=== PATIENT | male | born 1970 | race Caucasian/White ===

== ENCOUNTER 2017-01-13 07:44 | Inpatient (IN) | payer MEDICAID ==
[~2017-01-13] VITALS: Ht 203.2 cm; Wt 78.9 kg
[2017-01-13] MEDS ORDERED: SODIUM CHLORIDE 0.9% 1,000 ML IV ONE (08:12)
[2017-01-13] MEDS ORDERED: ONDANSETRON HCL 4MG/2ML VIAL IV STA (08:12)
[2017-01-13] MEDS ORDERED: FAMOTIDINE 20MG/2ML VIAL IV STA (08:12)
[2017-01-13] MEDS ORDERED: FOLIC ACID 1 MG, THIAMINE HCL 100 MG, MVI, ADULT NO.1 10 ML in DEXTROSE 5% WATER 1,000 ML IV ONE ×4 (08:15)
[2017-01-13] MEDS ORDERED: LORAZEPAM 2MG/ML CPJ IV ONE (08:15)
[2017-01-13 08:34] LABS: HEMATOCRIT. 40.3 % (42.0-52.0); HEMOGLOBIN. 13.4 g/dL (14.0-18.0); MEAN CORPUSCULAR HEMOGLOBIN 31.8 pg (28.0-32.0); MEAN CORPUSCULAR HGB CONC 33.4 g/dL (31.0-37.0); MEAN CORPUSCULAR VOLUME 95.4 fL (80.0-94.0); MEAN PLATELET VOLUME 11.9 fl (7.4-10.4); RED BLOOD CELL COUNT 4.23 mill/uL (4.7-6.1); RED CELL DISTRIBUTION WIDTH 17.9 % (11.6-14.6); WHITE BLOOD COUNT 3.2 x1000/uL (4.5-11.0)
[2017-01-13 08:43] LABS: CHLORIDE 100 mEq/L (98-107); INDEX HEMOLYSI 4 (1-3); INDEX ICTERIC 1 (1-4); INDEX LIPEMIC 1 (1-3)
[2017-01-13 08:44] LABS: DIFFERENTIAL COMMENT 1; PARTIAL THROMBOPLASTIN TIME 23.3 sec (24.0-34.0); PROTHROMBIN TIME 10.7 sec
[2017-01-13 08:46] LABS: PLATELET 24 x1000/uL (130-400)
[2017-01-13 08:47] LABS: ALANINE AMINOTRANSFERASE 119 IU/L (13-61); ALBUMIN 3.5 g/dL (3.4-5.0); ANION GAP 14; CALCIUM 8.8 mg/dL (8.5-10.1); CARBON DIOXIDE 31 mEq/L (21-32); ETHANOL BLOOD < 10 mg/dL; LIPASE 772 IU/L (73-393); MAGNESIUM 1.6 mg/dL (1.8-2.4); UREA NITROGEN BLOOD 7 mg/dL (7-21)
[2017-01-13 08:50] LABS: ACETAMINOPHEN < 2 ug/mL (10-30); CREATINE KINASE 145 IU/L (39-308); CREATINE KINASE MB FRACTION 0.6 ng/mL (0.5-3.6); TROPONIN I < 0.02 ng/mL (0.00-0.04); eGFR > 60 mL/min (>60)
[2017-01-13 09:11] LABS: PLATELET ESTIMATE MARKEDLY DECREASED
[2017-01-13] MEDS ORDERED: MAGNESIUM 2 G PREMIX 50 ML IV ONE (09:30)
[2017-01-13] MEDS ORDERED: SODIUM CHLORIDE 0.9% 1000ML BAG (SEPSIS BOLUS) IV ONE (09:30)
[2017-01-13] MEDS ORDERED: CHLORDIAZEPOXIDE 25MG CAPSULE PO ONE (09:30)
[2017-01-13] MEDS ORDERED: DOCUSATE SODIUM 100MG CAPSULE PO PRN (10:45)
[2017-01-13] MEDS ORDERED: NA PHOS,M-B/NA PHOS,DI-BA ENEMA 118ML PR PRN (10:45)
[2017-01-13] MEDS ORDERED: ONDANSETRON HCL 4MG/2ML VIAL IV PRN (10:45)
[2017-01-13] MEDS ORDERED: GUAIFENESIN 200MG/10ML SUGAR FREE UDC PO PRN (10:45)
[2017-01-13] MEDS ORDERED: CLONIDINE 0.1MG TABLET PO PRN (10:45)
[2017-01-13] MEDS ORDERED: DIPHENHYDRAMINE 50MG/ML VIAL IV PRN (10:45)
[2017-01-13] MEDS ORDERED: MAGNESIUM/ALUMINUM HYDROXIDE/SIMETHICONE 30ML UDC PO PRN (10:45)
[2017-01-13] MEDS ORDERED: ACETAMINOPHEN 325MG TABLET PO PRN (10:45)
[2017-01-13] MEDS ORDERED: IPRATROPIUM/ALBUTEROL 0.5-3(2.5)MG/3ML NEB INH PRN (10:45)
[2017-01-13] MEDS ORDERED: TRAMADOL 50MG TABLET PO PRN (10:45)
[2017-01-13] MEDS ORDERED: LORAZEPAM 2MG/ML CPJ IV PRN (10:45)
[2017-01-13 10:53] LABS: CLARITY URINE CLEAR (CLEAR); COLOR URINE DARK YELLOW (YELLOW); GLUCOSE URINE NEGATIVE (NEGATIVE); KETONES URINE TRACE (NEGATIVE); LEUKOCYTE ESTERASE URINE NEGATIVE (NEGATIVE); NITRITE URINE NEGATIVE (NEGATIVE); OCCULT BLOOD URINE NEGATIVE (NEGATIVE); PH URINE 8.5 (4.5-8.0); PROTEIN URINE NEGATIVE (NEGATIVE)
[2017-01-13 11:23] LABS: *AMPHETAMINES SCREEN URINE NEGATIVE (NEGATIVE); *BARBITURATES SCREEN URINE NEGATIVE (NEGATIVE); *BENZODIAZEPINES SCREEN URINE PRESUMTIVE POSITIVE (NEGATIVE); *COCAINE SCREEN URINE NEGATIVE (NEGATIVE); CANNABINOID URINE SCREEN NEGATIVE (NEGATIVE); ECSTASY MDMA SCREEN URINE NEGATIVE (NEGATIVE); METHADONE URINE SCREEN NEGATIVE (NEGATIVE); OPIATES URINE SCREEN NEGATIVE (NEGATIVE); PHENCYCLIDINE URINE SCREEN NEGATIVE (NEGATIVE)
[2017-01-13 11:56] LABS: MUCUS URINE 1+ /lpf (NONE/TRACE)
[2017-01-13 11:57] LABS: SQUAMOUS EPITHELIAL CELL URINE RARE /lpf (RARE/1+)
[2017-01-13 11:58] LABS: BACTERIA URINE TRACE; WBC URINE 0-2 /hpf (0-2)
[2017-01-13] MEDS ORDERED: MVI, ADULT NO.1 10 ML, FOLIC ACID 1 MG, THIAMINE HCL 100 MG in SODIUM CHLORIDE 0.9% 1,0... IV NR ×4 (13:30)
[2017-01-13] MEDS: SUCRALFATE 1 G/10 ML UDC PO SCH ×4 (13:39→21:00)
[2017-01-13 17:15] VITALS: BP 118/79
[2017-01-13] MEDS ORDERED: PNEUMOCOCCAL 23-VAL P-SAC VAC 0.5 ML IM ONE (19:45)
[2017-01-13 20:00] VITALS: BP 97/71
[2017-01-13] MEDS: METOPROLOL TARTRATE 25MG TABLET PO SCH (21:00)
[2017-01-13] MEDS: CHLORDIAZEPOXIDE 5 MG CAPSULE PO SCH (21:27)
[2017-01-14] VITALS: BP 149/108
[2017-01-14 04:00] VITALS: BP 121/81
[2017-01-14] MEDS: CHLORDIAZEPOXIDE 5 MG CAPSULE PO SCH (06:29)
[2017-01-14 08:00] VITALS: BP 103/71
[2017-01-14] MEDS ORDERED: FAMOTIDINE 20MG TABLET PO SCH (09:00)
[2017-01-14] MEDS ORDERED: PANTOPRAZOLE SODIUM 40 MG/VIAL IV SCH (09:00)
[2017-01-14] MEDS: METOPROLOL TARTRATE 25MG TABLET PO SCH (09:00)
[2017-01-14] MEDS: SUCRALFATE 1 G/10 ML UDC PO SCH ×2 (09:14→12:15)
[2017-01-14 11:09] VITALS: BP 103/71
[2017-01-14 12:00] VITALS: BP 107/62
== END 2017-01-14 14:00 | disposition home or self-care (01) | DRG 775 ==
LOC: ER 08:01 → 7WST 09:31
PROVIDERS: ADMIT Internal Medicine; ATTEND Internal Medicine
DX: F10.239 Alcohol dependence with withdrawal, unspecified (principal); D61.818 Other pancytopenia; I10 Essential (primary) hypertension; F17.210 Nicotine dependence, cigarettes, uncomplicated; Y90.9 Presence of alcohol in blood, level not specified; Z59.0 Homelessness
CPT/HCPCS: 36415; 70450; 71010; 76705; 80053; 80305; 80307; 80329; 81001; 82550; 82553; 83036; 83605; 83690; 83735; 84484; 85025; 85610; 85730; 87040; 87086; 93005; 96365; 96366; 96367; 96368; 96375; 99291; G0482; J2060; J2405; J3411; J3475; J3490; J7030; J7070

== ENCOUNTER 2017-12-11 20:46 | Emergency (ER) | payer MEDICAID ==
[~2017-12-11] VITALS: Ht 172.7 cm; Wt 95.0 kg
[2017-12-11] MEDS ORDERED: SODIUM CHLORIDE 0.9% 1,000 ML IV ONE (21:11)
[2017-12-11 21:39] LABS: BASOPHILS % 0.4 % (0.0-2.0); EOSINOPHILS % 2.4 % (0.0-5.0); HEMATOCRIT. 33.3 % (42.0-52.0); LYMPHOCYTES % 31.8 % (20.0-50.0); MEAN CORPUSCULAR HEMOGLOBIN 31.4 pg (28.0-32.0); MEAN CORPUSCULAR VOLUME 95.1 fL (80.0-94.0); MEAN PLATELET VOLUME 8.5 fl (7.4-10.4); MONOCYTES % 13.8 % (2.0-8.0); NEUTROPHILS % 51.6 % (40.0-76.0); PLATELET 120 x1000/uL (130-400); RED BLOOD CELL COUNT 3.51 mill/uL (4.7-6.1); RED CELL DISTRIBUTION WIDTH 18.5 % (11.6-14.6)
[2017-12-11 21:44] LABS: CHLORIDE 107 mEq/L (98-107)
[2017-12-11 21:46] LABS: INR 1.1; PROTHROMBIN TIME 11.4 sec (9.4-11.6)
[2017-12-11 21:47] LABS: ETHANOL BLOOD 227 mg/dL
[2017-12-12 00:03] LABS: CLARITY URINE CLEAR (CLEAR); COLOR URINE YELLOW (YELLOW); KETONES URINE NEGATIVE (NEGATIVE); LEUKOCYTE ESTERASE URINE NEGATIVE (NEGATIVE); NITRITE URINE NEGATIVE (NEGATIVE); OCCULT BLOOD URINE NEGATIVE (NEGATIVE); PH URINE 5.5 (4.5-8.0); PROTEIN URINE NEGATIVE (NEGATIVE); SPECIFIC GRAVITY URINE 1.014 (1.005-1.030); UROBILINOGEN URINE 0.2 E.U./dL (0.2-1.0)
[2017-12-12 00:12] LABS: *AMPHETAMINES SCREEN URINE NEGATIVE (NEGATIVE); *BARBITURATES SCREEN URINE NEGATIVE (NEGATIVE); *BENZODIAZEPINES SCREEN URINE PRESUMTIVE POSITIVE (NEGATIVE)
[2017-12-12 00:13] LABS: *COCAINE SCREEN URINE NEGATIVE (NEGATIVE); CANNABINOID URINE SCREEN NEGATIVE (NEGATIVE); METHADONE URINE SCREEN NEGATIVE (NEGATIVE); OPIATES URINE SCREEN NEGATIVE (NEGATIVE); PHENCYCLIDINE URINE SCREEN NEGATIVE (NEGATIVE)
[2017-12-12] MEDS ORDERED: POTASSIUM CHLORIDE 20MEQ TABLET SR PO SCH (00:22)
[2017-12-12 01:15] VITALS: BP 107/72
== END 2017-12-12 01:15 | disposition home or self-care (01) ==
LOC: ER 20:55
DX: F10.129 Alcohol abuse with intoxication, unspecified (principal); R55 Syncope and collapse; E11.9 Type 2 diabetes mellitus without complications; E78.00 Pure hypercholesterolemia, unspecified; I10 Essential (primary) hypertension; Y90.7 Blood alcohol level of 200-239 mg/100 ml
CPT/HCPCS: 36415; 70450; 72125; 80053; 80305; 81003; 85025; 85610; 96360; 99285; G0482; J7030; Z7610

== ENCOUNTER 2018-06-21 11:44 | Emergency (ER) | payer MEDICAID ==
[~2018-06-21] VITALS: Ht 165.1 cm; Wt 74.0 kg
[2018-06-21] MEDS ORDERED: SODIUM CHLORIDE 0.9% 1,000 ML IV ONE (13:45)
[2018-06-21] MEDS ORDERED: CYANOCOBALAMIN 1000MCG/ML VIAL IM ONE (13:45)
[2018-06-21 14:29] LABS: BASOPHILS % 0.7 % (0.0-2.0); EOSINOPHILS % 2.4 % (0.0-5.0); HEMATOCRIT. 37.9 % (42.0-52.0); HEMOGLOBIN. 12.7 g/dL (14.0-18.0); MEAN CORPUSCULAR HEMOGLOBIN 32.5 pg (28.0-32.0); MEAN CORPUSCULAR VOLUME 97.4 fL (80.0-94.0); MEAN PLATELET VOLUME 11.1 fl (7.4-10.4); MONOCYTES % 10.1 % (2.0-8.0); NEUTROPHILS % 45.8 % (40.0-76.0); PLATELET 60 x1000/uL (130-400); RED CELL DISTRIBUTION WIDTH 16.5 % (11.6-14.6)
[2018-06-21 14:40] LABS: CHLORIDE 106 mEq/L (98-107)
[2018-06-21 14:46] LABS: AMMONIA 29 uMol/L (<32)
[2018-06-21 14:49] LABS: ETHANOL BLOOD 328 mg/dL
[2018-06-21 15:36] LABS: CLARITY URINE CLEAR (CLEAR); COLOR URINE DARK YELLOW (YELLOW); KETONES URINE TRACE (NEGATIVE); LEUKOCYTE ESTERASE URINE NEGATIVE (NEGATIVE); NITRITE URINE NEGATIVE (NEGATIVE); OCCULT BLOOD URINE NEGATIVE (NEGATIVE); PROTEIN URINE TRACE (NEGATIVE); SPECIFIC GRAVITY URINE 1.023 (1.005-1.030)
[2018-06-21 15:45] LABS: *AMPHETAMINES SCREEN URINE NEGATIVE (NEGATIVE); *BARBITURATES SCREEN URINE NEGATIVE (NEGATIVE); *BENZODIAZEPINES SCREEN URINE NEGATIVE (NEGATIVE); *COCAINE SCREEN URINE NEGATIVE (NEGATIVE)
[2018-06-21 15:46] LABS: CANNABINOID URINE SCREEN NEGATIVE (NEGATIVE); METHADONE URINE SCREEN NEGATIVE (NEGATIVE); OPIATES URINE SCREEN NEGATIVE (NEGATIVE); PHENCYCLIDINE URINE SCREEN NEGATIVE (NEGATIVE)
[2018-06-21 17:10] VITALS: BP 122/64
[2018-06-21 17:51] LABS: HEPATITIS B SURFACE ANTIGEN NEGATIVE
[2018-06-21 18:19] LABS: HEPATITIS B CORE AB IGM NEGATIVE
[2018-06-21 18:21] LABS: HEPATITIS A AB IGM NEGATIVE (NEGATIVE)
== END 2018-06-21 17:47 | disposition home or self-care (01) ==
LOC: ER 11:44
DX: F10.229 Alcohol dependence with intoxication, unspecified (principal); R55 Syncope and collapse; D53.9 Nutritional anemia, unspecified; D72.819 Decreased white blood cell count, unspecified; E83.51 Hypocalcemia; E83.42 Hypomagnesemia; R74.0 Nonspecific elevation of levels of transaminase and lactic acid dehydrogenase [LDH]; R80.9 Proteinuria, unspecified; K70.10 Alcoholic hepatitis without ascites; R82.4 Acetonuria; N17.0 Acute kidney failure with tubular necrosis; R06.02 Shortness of breath; E86.0 Dehydration; R53.81 Other malaise; R53.83 Other fatigue; R42 Dizziness and giddiness; Y90.8 Blood alcohol level of 240 mg/100 ml or more; F41.9 Anxiety disorder, unspecified; K21.9 Gastro-esophageal reflux disease without esophagitis; F17.200 Nicotine dependence, unspecified, uncomplicated; Z87.09 Personal history of other diseases of the respiratory system
CPT/HCPCS: 36415; 71045; 80053; 80305; 81003; 82140; 83036; 83735; 83880; 84484; 85025; 93005; 96360; 96372; 99285; G0482; J3420; J7030; 86705; 86709; 86803; 87340

== ENCOUNTER 2018-12-19 23:09 | Emergency (ER) | payer MEDICAID ==
[~2018-12-19] VITALS: Ht 175.3 cm; Wt 94.0 kg
[2018-12-19] MEDS ORDERED: SODIUM CHLORIDE 0.9% 1,000 ML IV ONE (23:43)
[2018-12-20 00:15] LABS: EOSINOPHILS % 2.9 % (0.0-5.0); HEMOGLOBIN. 11.7 g/dL (14.0-18.0); LYMPHOCYTES % 32.4 % (20.0-50.0); MEAN CORPUSCULAR HEMOGLOBIN 29.5 pg (28.0-32.0); MEAN CORPUSCULAR VOLUME 90.7 fL (80.0-94.0); MEAN PLATELET VOLUME 10.6 fl (7.4-10.4); MONOCYTES % 11.4 % (2.0-8.0); NEUTROPHILS % 52.3 % (40.0-76.0); PLATELET 67 x1000/uL (130-400); RED BLOOD CELL COUNT 3.97 mill/uL (4.7-6.1); RED CELL DISTRIBUTION WIDTH 17.5 % (11.6-14.6)
[2018-12-20 00:24] LABS: CHLORIDE 107 mEq/L (98-107)
[2018-12-20 00:49] LABS: ETHANOL BLOOD 328 mg/dL
[2018-12-20 13:30] VITALS: BP 135/88
== END 2018-12-20 13:41 | disposition home or self-care (01) ==
LOC: ER 23:09
DX: T51.0X1A Toxic effect of ethanol, accidental (unintentional), initial encounter (principal); R10.13 Epigastric pain; R10.33 Periumbilical pain; I51.9 Heart disease, unspecified; K21.9 Gastro-esophageal reflux disease without esophagitis; F41.9 Anxiety disorder, unspecified; F17.200 Nicotine dependence, unspecified, uncomplicated; Z87.09 Personal history of other diseases of the respiratory system; Z59.0 Homelessness; F10.229 Alcohol dependence with intoxication, unspecified; Y90.8 Blood alcohol level of 240 mg/100 ml or more; Y92.89 Other specified places as the place of occurrence of the external cause
CPT/HCPCS: 36415; 74176; 80053; 80320; 83690; 85025; 99284; J7030; Z7610; G0480